=== PATIENT | female | born 1960 | race Caucasian/White ===

== ENCOUNTER 2019-11-04 17:35 | Inpatient (IN) ==
[2019-11-04 18:43] LABS: Basophils % 0.2 %; Eosinophils % 0.1 %; Hematocrit 46.1 % (35.3-44.9); Hemoglobin 14.9 g/dL (11.5-15.4); Immature Granulocytes % 0.5 % (0-4); Lymphocytes # 0.8 K/mcL (0.6-4.6); Lymphocytes % 3.6 %; Mean Corpuscular HGB Conc 32.3 g/dL (31.6-35.5); Mean Corpuscular Hemoglobin 28.9 pg (28.0-33.3); Mean Corpuscular Volume 89.3 fL (83.0-100.0); Monocytes # 1.1 K/mcL (0.0-1.3); Monocytes % 5.2 %; Neutrophils # 19.5 K/mcL (1.6-8.9); Platelet Count 322 K/mcL (140-400); Red Blood Count 5.16 M/mcL (3.82-4.97); Red Cell Distribution Width 13.9 % (11.5-14.5); Segmented Neutrophils % 90.4 %; White Blood Count 21.5 K/mcL (4.3-11.1)
[2019-11-04 18:51] LABS: Bilirubin,Urine Negative (Negative); Blood,Urine Small (Negative); Clarity,Urine Ex.Turbid (Clear); Color,Urine Dark-Yellow (Yellow); Glucose,Urine (UA) 50 mg/dL (Normal); Ketones,Urine Negative (Negative); Leukocyte Esterase,Urine Negative (Negative); Nitrite,Urine Negative (Negative); PH,Urine 5.5 pH Units (5.0-8.0); Protein,Urine 100 mg/dL (Neg-Trace); Specific Gravity,Urine > 1.030 (1.010-1.025); Urobilinogen,Urine Normal (Normal)
[2019-11-04 18:58] LABS: Hyaline Casts,Urine Moderate per lpf (None Seen); Mucus,Urine Few per lpf (None-Few); Squamous Epithelial Cell,Urine Many per hpf (None-Few)
[2019-11-04 18:59] LABS: Bacteria,Urine Many per hpf (None-Few); RBC,Urine 0-3 per hpf (0-3); WBC,Urine 0-3 per hpf (0-3)
[2019-11-04 19:03] LABS: Alanine Aminotransferase 57 Units/L (7-52); Albumin 4.5 g/dL (3.5-5.7); Albumin/Globulin Ratio 1.4 (1.1-2.2); Alkaline Phosphatase 91 Units/L (34-104); Amylase 76 Units/L (29-103); Aspartate Amino Transferase 69 Units/L (13-39); BUN/Creatinine Ratio 20 (6-26); Bilirubin,Direct 0.4 mg/dL (0.0-0.2); Bilirubin,Indirect 1.2 mg/dL (0.0-1.0); Bilirubin,Total 1.6 mg/dL (0.3-1.0); Blood Urea Nitrogen 22 mg/dL (8-23); Calcium 10.1 mg/dL (8.6-10.3); Carbon Dioxide 29 mEq/L (23-29); Chloride 93 mEq/L (98-107); Globulin 3.3 g/dL (2.4-3.5); Glucose 152 mg/dL (70-105); Lipase 132 Units/L (11-82); Osmolality,Calculated 284 (280-300); Sodium 134 mEq/L (136-145); Total Protein 7.8 g/dL (6.4-8.9); eGFR For African Americans > 60 (> 60); eGFR For Non-African Americans 50 (> 60)
[2019-11-04] MEDS ORDERED: *HR* HYDROmorphone (PF) 1 MG/ML SYRINGE IVP ONE (20:46)
[2019-11-04] MEDS ORDERED: Ondansetron 4 MG/2 ML VIAL IVP ONE (20:46)
[2019-11-04] MEDS: 0.9 % Sodium Chloride 1,000 ML IVC SCH ×6 (21:01→23:26)
[2019-11-05] MEDS ORDERED: Naloxone 0.4 MG/ML INJ IVP PRN (00:05)
[2019-11-05] MEDS: *HR* HYDROmorphone (PF) 1 MG/ML SYRINGE IVP PRN ×8 (00:24→23:52)
[2019-11-05] MEDS: 0.9 % Sodium Chloride 1,000 ML IVC SCH ×12 (00:24→05:24)
[2019-11-05 03:59] LABS: Basophils % 0.1 %; Hematocrit 36.5 % (35.3-44.9); Immature Granulocytes % 1.3 % (0-4); Lymphocytes # 0.8 K/mcL (0.6-4.6); Mean Corpuscular HGB Conc 31.5 g/dL (31.6-35.5); Mean Corpuscular Hemoglobin 28.2 pg (28.0-33.3); Mean Corpuscular Volume 89.5 fL (83.0-100.0); Mean Platelet Volume 11.2 fL (9.4-12.4); Monocytes % 6.3 %; Neutrophils # 14.1 K/mcL (1.6-8.9); Platelet Count 205 K/mcL (140-400); Red Blood Count 4.08 M/mcL (3.82-4.97); Segmented Neutrophils % 87.3 %; White Blood Count 16.1 K/mcL (4.3-11.1)
[2019-11-05 04:01] LABS: Hemoglobin 11.5 g/dL (11.5-15.4); INR 1.1; Prothrombin Time 12.6 Seconds (9.4-12.1)
[2019-11-05 04:17] LABS: Alanine Aminotransferase 37 Units/L (7-52); Albumin 3.3 g/dL (3.5-5.7); Albumin/Globulin Ratio 1.3 (1.1-2.2); Alkaline Phosphatase 74 Units/L (34-104); Aspartate Amino Transferase 30 Units/L (13-39); BUN/Creatinine Ratio 23 (6-26); Bilirubin,Total 0.7 mg/dL (0.3-1.0); Blood Urea Nitrogen 15 mg/dL (8-23); Carbon Dioxide 25 mEq/L (23-29); Chloride 103 mEq/L (98-107); Globulin 2.6 g/dL (2.4-3.5); Glucose 112 mg/dL (70-105); Magnesium 1.6 mg/dL (1.6-2.6); Osmolality,Calculated 284 (280-300); Phosphorous 2.4 mg/dL (2.7-4.5); Potassium 3.8 mEq/L (3.5-5.1); Sodium 136 mEq/L (136-145); Total Protein 5.9 g/dL (6.4-8.9); eGFR For African Americans > 60 (> 60); eGFR For Non-African Americans > 60 (> 60)
[2019-11-05] MEDS: *HR* Heparin 5,000 UNIT/ML VIAL SQ SCH ×3 (05:19→20:51)
[2019-11-05] MEDS: Tiotropium 18 MCG inhalation IH SCH (07:40)
[2019-11-05] MEDS: Budesonide/Formoterol 160/4.5 1 PUFF INH IH SCH ×2 (07:40→19:31)
[2019-11-05] MEDS: amLODIPine 5 MG TABLET PO SCH (08:51)
[2019-11-05] MEDS: atenoloL 50 MG TABLET PO SCH (08:51)
[2019-11-05] MEDS ORDERED: *HR* Labetalol 20 MG/4 ML SYRINGE IVP PRN (11:15)
[2019-11-05] MEDS: Ringers Solution, Lactated 1,000 ML IVC SCH ×2 (12:07→18:29)
[2019-11-05] MEDS ORDERED: Artificial Tears SOLN 15 ML BOTTLE BOTH EYES PRN (15:39)
[2019-11-05] MEDS: *HR* Promethazine 25 MG/ML VIAL IVP PRN ×2 (15:43→21:49)
[2019-11-06] MEDS: Ringers Solution, Lactated 1,000 ML IVC SCH ×4 (01:35→17:50)
[2019-11-06] MEDS: *HR* HYDROmorphone (PF) 1 MG/ML SYRINGE IVP PRN ×5 (05:13→22:55)
[2019-11-06] MEDS: *HR* Heparin 5,000 UNIT/ML VIAL SQ SCH ×3 (05:14→22:02)
[2019-11-06 05:45] LABS: Basophils % 0.2 %; Eosinophils % 0.2 %; Hematocrit 34.2 % (35.3-44.9); Hemoglobin 11.2 g/dL (11.5-15.4); Immature Granulocytes % 1.3 % (0-4); Lymphocytes # 0.8 K/mcL (0.6-4.6); Lymphocytes % 4.8 %; Mean Corpuscular HGB Conc 32.7 g/dL (31.6-35.5); Mean Corpuscular Volume 88.6 fL (83.0-100.0); Mean Platelet Volume 11.3 fL (9.4-12.4); Monocytes # 1.2 K/mcL (0.0-1.3); Monocytes % 7.3 %; Neutrophils # 14.1 K/mcL (1.6-8.9); Platelet Count 188 K/mcL (140-400); Red Blood Count 3.86 M/mcL (3.82-4.97); Red Cell Distribution Width 13.2 % (11.5-14.5); Segmented Neutrophils % 86.2 %; White Blood Count 16.4 K/mcL (4.3-11.1)
[2019-11-06 05:58] LABS: Alanine Aminotransferase 20 Units/L (7-52); Albumin/Globulin Ratio 1.1 (1.1-2.2); Alkaline Phosphatase 80 Units/L (34-104); Aspartate Amino Transferase 15 Units/L (13-39); BUN/Creatinine Ratio 15 (6-26); Bilirubin,Total 0.8 mg/dL (0.3-1.0); Blood Urea Nitrogen 8 mg/dL (8-23); Calcium 8.7 mg/dL (8.6-10.3); Carbon Dioxide 24 mEq/L (23-29); Chloride 97 mEq/L (98-107); Globulin 2.7 g/dL (2.4-3.5); Glucose 72 mg/dL (70-105); Osmolality,Calculated 267 (280-300); Potassium 3.5 mEq/L (3.5-5.1); Sodium 130 mEq/L (136-145); Total Protein 5.7 g/dL (6.4-8.9); eGFR For African Americans > 60 (> 60); eGFR For Non-African Americans > 60 (> 60)
[2019-11-06] MEDS: Budesonide/Formoterol 160/4.5 1 PUFF INH IH SCH ×2 (07:31→19:53)
[2019-11-06] MEDS: Tiotropium 18 MCG inhalation IH SCH (07:32)
[2019-11-06] MEDS: atenoloL 50 MG TABLET PO SCH (07:54)
[2019-11-06] MEDS: amLODIPine 5 MG TABLET PO SCH (07:54)
[2019-11-07] MEDS: Ringers Solution, Lactated 1,000 ML IVC SCH ×3 (01:42→23:58)
[2019-11-07 02:42] LABS: Basophils % 0.2 %; Eosinophils # 0.1 K/mcL (0.0-0.6); Eosinophils % 0.5 %; Hematocrit 33.7 % (35.3-44.9); Hemoglobin 10.8 g/dL (11.5-15.4); Immature Granulocytes % 0.9 % (0-4); Lymphocytes # 0.9 K/mcL (0.6-4.6); Lymphocytes % 6.2 %; Mean Corpuscular Hemoglobin 28.8 pg (28.0-33.3); Mean Corpuscular Volume 89.9 fL (83.0-100.0); Mean Platelet Volume 11.4 fL (9.4-12.4); Monocytes # 1.3 K/mcL (0.0-1.3); Monocytes % 8.3 %; Neutrophils # 12.6 K/mcL (1.6-8.9); Platelet Count 207 K/mcL (140-400); Red Blood Count 3.75 M/mcL (3.82-4.97); Red Cell Distribution Width 13.2 % (11.5-14.5); Segmented Neutrophils % 83.9 %; White Blood Count 15.1 K/mcL (4.3-11.1)
[2019-11-07 03:02] LABS: BUN/Creatinine Ratio 13 (6-26); Blood Urea Nitrogen 7 mg/dL (8-23); Calcium 8.4 mg/dL (8.6-10.3); Carbon Dioxide 25 mEq/L (23-29); Chloride 97 mEq/L (98-107); Glucose 79 mg/dL (70-105); Osmolality,Calculated 271 (280-300); Potassium 3.6 mEq/L (3.5-5.1); Sodium 132 mEq/L (136-145); eGFR For African Americans > 60 (> 60); eGFR For Non-African Americans > 60 (> 60)
[2019-11-07] MEDS: *HR* Heparin 5,000 UNIT/ML VIAL SQ SCH ×3 (06:01→20:08)
[2019-11-07] MEDS: Budesonide/Formoterol 160/4.5 1 PUFF INH IH SCH ×2 (07:53→19:41)
[2019-11-07] MEDS: Tiotropium 18 MCG inhalation IH SCH (07:53)
[2019-11-07] MEDS: atenoloL 50 MG TABLET PO SCH (08:37)
[2019-11-07] MEDS: amLODIPine 5 MG TABLET PO SCH (08:38)
[2019-11-07] MEDS ORDERED: *HR* HYDROmorphone (PF) 1 MG/ML SYRINGE IVP PRN (10:08)
[2019-11-08 02:02] LABS: Basophils % 0.2 %; Eosinophils # 0.1 K/mcL (0.0-0.6); Eosinophils % 0.7 %; Hematocrit 30.4 % (35.3-44.9); Hemoglobin 10.2 g/dL (11.5-15.4); Immature Granulocytes % 0.6 % (0-4); Lymphocytes # 0.9 K/mcL (0.6-4.6); Lymphocytes % 7.8 %; Mean Corpuscular HGB Conc 33.6 g/dL (31.6-35.5); Mean Corpuscular Hemoglobin 29.3 pg (28.0-33.3); Mean Corpuscular Volume 87.4 fL (83.0-100.0); Mean Platelet Volume 11.1 fL (9.4-12.4); Monocytes # 1.3 K/mcL (0.0-1.3); Monocytes % 10.6 %; Neutrophils # 9.6 K/mcL (1.6-8.9); Platelet Count 216 K/mcL (140-400); Red Blood Count 3.48 M/mcL (3.82-4.97); Red Cell Distribution Width 13.1 % (11.5-14.5); Segmented Neutrophils % 80.1 %
[2019-11-08 02:22] LABS: BUN/Creatinine Ratio 10 (6-26); Blood Urea Nitrogen 5 mg/dL (8-23); Calcium 8.1 mg/dL (8.6-10.3); Carbon Dioxide 27 mEq/L (23-29); Chloride 97 mEq/L (98-107); Glucose 110 mg/dL (70-105); Osmolality,Calculated 274 (280-300); Potassium 3.2 mEq/L (3.5-5.1); Sodium 133 mEq/L (136-145); eGFR For African Americans > 60 (> 60); eGFR For Non-African Americans > 60 (> 60)
[2019-11-08] MEDS: *HR* Heparin 5,000 UNIT/ML VIAL SQ SCH (06:01)
[2019-11-08 07:59] VITALS: BP 138/74
[2019-11-08] MEDS: Budesonide/Formoterol 160/4.5 1 PUFF INH IH SCH (08:01)
[2019-11-08] MEDS: Tiotropium 18 MCG inhalation IH SCH (08:02)
[2019-11-08] MEDS: atenoloL 50 MG TABLET PO SCH (08:49)
[2019-11-08] MEDS: amLODIPine 5 MG TABLET PO SCH (08:50)
== END 2019-11-08 11:00 | disposition home or self-care (01) | DRG 393 ==
LOC: 3ANU 17:35 → EMEROOARM 17:35 → SUATTDRO 22:22 → 3ANU 22:58
PROVIDERS: ADMIT Student in an Organized Health Care Education/Training Program; ATTEND Internal Medicine